=== PATIENT | female | born 1965 | race Caucasian/White ===

== ENCOUNTER 2017-07-18 14:57 | Outpatient (CLI) | payer OTHER | END 2017-07-18 17:00 | disposition home or self-care (01) | LOC: DCC 17:00 | DX: R06.02 Shortness of breath (principal); I10 Essential (primary) hypertension; E78.5 Hyperlipidemia, unspecified; F41.9 Anxiety disorder, unspecified; E66.01 Morbid (severe) obesity due to excess calories; Z88.0 Allergy status to penicillin; Z72.0 Tobacco use | CPT/HCPCS: G0463 ==